=== PATIENT | male | born 1950 | race Caucasian/White ===

== ENCOUNTER → 2018-06-19 | Outpatient (CLI) | payer MEDICARE | END | disposition home or self-care (01) | LOC: CFH 08:23 | PROVIDERS: ATTEND Family Medicine | DX: M19.011 Primary osteoarthritis, right shoulder (principal); M25.512 Pain in left shoulder; M25.711 Osteophyte, right shoulder ==

== ENCOUNTER → 2019-06-25 | Outpatient (CLI) | payer MEDICARE | END | disposition home or self-care (01) | LOC: CFH 08:53 | PROVIDERS: ATTEND Family Medicine | DX: M25.552 Pain in left hip (principal) ==

== ENCOUNTER 2020-07-31 11:13 | Emergency (ER) | payer MEDICARE ==
[~2020-07-31] VITALS: Ht 170.2 cm; Wt 83.9 kg
[2020-07-31 11:23] VITALS: BP 144/75
[2020-07-31] MEDS ORDERED: LIDOCAINE-MPF 2% ,5ML ONE (11:50)
[2020-07-31] MEDS ORDERED: DIPH,PERTUSS(ACELL),TET VAC/PF 0.5 ML IM-VACC ONE ×2 (11:50→12:00)
--- NOTE | 2020-07-31 11:52 | NUR ---
JERO PULLED FOR ERPA ADMIN. RING CUTTER AT BEDSIDE PER ERPA REQUEST.
[2020-07-31] MEDS ORDERED: LIDOCAINE 2%, 20ML SQ ONE (12:00)
[2020-07-31] MEDS ORDERED: NEOSPORIN OINT. PKT 1 PACKET ONE (12:24)
--- NOTE | 2020-07-31 12:43 | NUR ---
REPRODUCTION TECHNICIAN DRESSED WOUND PER ERPA INTRUCTIONS. TDAP ADMIN.
== END 2020-07-31 13:01 | disposition home or self-care (01) ==
LOC: ED 11:38
DX: S60.455A Superficial foreign body of left ring finger, initial encounter (principal); W26.8XXA Contact with other sharp object(s), not elsewhere classified, initial encounter; Y93.89 Activity, other specified; Y92.89 Other specified places as the place of occurrence of the external cause; Y99.8 Other external cause status
CPT/HCPCS: 10120; 90471; 90715